=== PATIENT | female | born 1990 ===

== ENCOUNTER 2022-01-24 12:48 | Outpatient (CLI) | payer OTHER, SELFPAY ==
--- NOTE | ~2022-01-24 | US_ITS ---
EXAMINATION: US OB /maternal detail DATE: 01/24/2022 13:18 INDICATION: Second trimester anatomic survey TECHNIQUE: Real-time ultrasound of the pelvis was performed. COMPARISON: None. FINDINGS: There is a single living fetus in breech presentation. The placenta is posterior and 3.3 cm from the internal cervical os. heart rate is 138 beats per minute (bpm). cardiac activity and fet al movement are noted. The amniotic fluid index is subjectively normal. The right ventricular outflow tract is not well demonstrated. The following anatomy was identif ied as normal: 4 chamber heart 3 vessel cord cord insertion kidneys urinary bladder stomach spine diaphragm ventricles cisterna magna cerebellum The following biometric data were obtained: Biparietal diameter (BPD): 4.1 cm; head circumference (HC): 16.1 cm; abdominal circumference (AC): 12 .9 cm; femur length (FL): 2.5 cm. These measurements are concordant. Estimated weight is 223 g +/- 33 g, which correlates with the <3rd percentile when 06/17/2022 is used as estimated date of delivery. As single measurements, these parameters are each equal to the following estimated gestational ages w ith ranges of +/- 2 standard deviations: BPD: 18 weeks 3 days ( 16 weeks 5 days - 2 weeks 1 days). HC: 18 weeks 6 days ( 17 weeks 3 days - 20 weeks 3 days). AC: 18 weeks 4 days ( 16 weeks 3 days - 20 weeks 4 days). FL: 17 weeks 3 days ( 16 weeks 0 days - 18 weeks 6 days). estimated gestational age based solely on measurements from this exam is 18 weeks 2 days +/- 1 weeks 2 days. IMPRESSION: 1. Single living fetus in breech presentation. 2. Estimated weight is 223 g +/- 33 g, which correlates with the <3rd percentile when 06/17/2022 is used as estimated date of delivery. 3. Right ventricular outflow tract not well demonstrated. Reviewed, dictated and finalized at location F. T EXPERIENCE REPRESENTATIVE IMPRESSION: 1. Single living fetus in breech presentation. 2. Estimated weight is 223 g +/- 33 g, which correlates with the <3rd per centile when 06/17/2022 is used as estimated date of delivery. 3. Right ventricular outflow tract not well demonstrated.
== END 2022-01-24 12:49 ==
DX: Z36.89 Encounter for other specified antenatal screening (principal); Z3A.18 18 weeks gestation of pregnancy
CPT/HCPCS: 76805